=== PATIENT | female | born 1960 | race Caucasian/White ===

== ENCOUNTER 2018-11-26 08:39 | Emergency (ER) | payer OTHER ==
[2018-11-26] MEDS ORDERED: PROCHLORPERAZINE EDISYLATE INJ 10 MG/2 ML VIAL IV ONE (09:28)
[2018-11-26] MEDS ORDERED: KETOROLAC TROMETHAMINE INJ/PF 30 MG/1 ML SDV IV ONE (09:28)
[2018-11-26] MEDS ORDERED: ONDANSETRON HCL INJ/PF 4 MG/2 ML SDV IV ONE (09:29)
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
[2018-11-26 12:12] VITALS: BP 153/88
== END 2018-11-26 12:32 | disposition home or self-care (01) ==
LOC: ER 08:39
DX: G44.209 Tension-type headache, unspecified, not intractable (principal); M54.2 Cervicalgia; F17.200 Nicotine dependence, unspecified, uncomplicated; I10 Essential (primary) hypertension
CPT/HCPCS: 99284; 96374; 96375; J1885; J0780; J2405

== ENCOUNTER 2018-12-01 12:38 | Emergency (ER) | payer OTHER ==
[2018-12-01] MEDS ORDERED: DIPHENHYDRAMINE HCL 50 MG/ML VIAL IV ONE (13:34)
[2018-12-01] MEDS ORDERED: NORMAL SALINE 1000 ML 1,000 ML IV ONE (13:34)
[2018-12-01] MEDS ORDERED: METOCLOPRAMIDE HCL INJ/PF 10 MG/2 ML SDV IV ONE (13:34)
--- NOTE | 2018-12-01 13:37 | ER Document Report ---
ED Medical Screen (RME) - General Chief Complaint: Headache Stated Complaint: HEADACHE Time Seen by Provider: 12/01/18 13:26 Primary Care Provider: RENE VILLAFUERTE MD [Primary Care Provider] - Follow up as needed Mode of Arrival: Ambulatory Information source: Patient Notes: 57-year-old female presents emergency department with complaints of a headache that is been present for the last 5 days. Not abrupt onset. States it's been constant and gradually worsening. She describes it as a pressure/pounding sensation over her entire head. She denies any radiation the pain. No alleviating factors. Pain worse with noise. She denies any vision changes, speech changes, numbness, tingling, weakness, ataxia. She has had some intermittent nausea and myalgias. She denies any fever, neck pain. Patient was seen in the emergency department a few days ago and was diagnosed with a tension headache. She had reproducible paraspinal pain. She was prescribed motrin. No relief with the medication. Patient thinks she has a migraine headache but no history of migraines. I have greeted and performed a rapid initial assessment of this patient. A comprehensive ED assessment and evaluation of the patient, analysis of test results and completion of the medical decision making process will be conducted by additional ED providers. PHYSICAL EXAMINATION: GENERAL: Well-appearing, well-nourished and in no acute distress. HEAD: Atraumatic, normocephalic. EYES: Pupils equal round extraocular movements intact, conjunctiva are normal. ENT: Nares patent NECK: Normal range of motion LUNGS: No respiratory distress Musculoskeletal: Normal range of motion NEUROLOGICAL: Normal speech, normal gait. PSYCH: Normal mood, normal affect. SKIN: Warm, Dry, normal turgor, no rashes or lesions noted. TRAVEL OUTSIDE OF THE [place] IN LAST 30 DAYS: No - Related Data Allergies/Adverse Reactions: No Known Allergies Allergy (Verified 12/01/18 12:38) Past Medical History - Social History Frequency of alcohol use: Occasional Drug Abuse: Prescription drugs - Past Medical History Cardiac Medical History: Reports: Hx Hypertension Denies: Hx Coronary Artery Disease, Hx Heart Attack Pulmonary Medical History: Reports: Hx COPD Denies: Hx Asthma, Hx Bronchitis, Hx Pneumonia Neurological Medical History: Denies: Hx Cerebrovascular Accident, Hx Seizures Renal/ Medical History: Denies: Hx Peritoneal Dialysis Musculoskeltal Medical History: Denies Hx Arthritis Physical Exam - Vital signs Vitals: Temp Pulse Resp BP Pulse Ox 99.2 F 72 20 138/91 H 96 12/01/18 12:54 12/01/18 12:54 12/01/18 12:54 12/01/18 12:54 12/01/18 12:54 Course - Vital Signs Vital signs: Temp Pulse Resp BP Pulse Ox 99.2 F 72 20 138/91 H 96 12/01/18 12:54 12/01/18 12:54 12/01/18 12:54 12/01/18 12:54 12/01/18 12:54 Doctor's Discharge - Discharge Referrals: RENE VILLAFUERTE MD [Primary Care Provider] - Follow up as needed
--- NOTE | 2018-12-01 14:49 | ER Document Report ---
ED General - General Chief Complaint: Headache Stated Complaint: HEADACHE Time Seen by Provider: 12/01/18 13:26 Primary Care Provider: RENE VILLAFUERTE MD [Primary Care Provider] - Follow up as needed Mode of Arrival: Ambulatory TRAVEL OUTSIDE OF THE [place] IN LAST 30 DAYS: No - HPI Notes: Patient presents to the emergency department for evaluation of a headache. It started on Sunday. It was gradual in onset. She has had intermittent blurry vision. She was seen here earlier in the week and diagnosed with a tension headache. She was sent home with Motrin which she states is not been helping. She is also had nausea and vomiting. She reports one episode of emesis yesterday. She denies any difficulty speaking or swallowing. Moving her arms and legs without difficulty. She denies any recent head traumas. She does have a history of high blood pressure has been taking her medications appropriately. - Related Data Allergies/Adverse Reactions: No Known Allergies Allergy (Verified 12/01/18 12:38) Past Medical History - General Information source: Patient - Social History Smoking Status: Current Every Day Smoker Frequency of alcohol use: Occasional Drug Abuse: Prescription drugs Family History: Reviewed & Not Pertinent, Other - Mother with aneurysm Patient has suicidal ideation: No Patient has homicidal ideation: No - Past Medical History Cardiac Medical History: Reports: Hx Hypertension Denies: Hx Coronary Artery Disease, Hx Heart Attack Pulmonary Medical History: Reports: Hx COPD Denies: Hx Asthma, Hx Bronchitis, Hx Pneumonia Neurological Medical History: Denies: Hx Cerebrovascular Accident, Hx Seizures Renal/ Medical History: Denies: Hx Peritoneal Dialysis Musculoskeletal Medical History: Denies Hx Arthritis Review of Systems - Review of Systems Constitutional: No symptoms reported EENT: See HPI, Blurred vision Cardiovascular: No symptoms reported Respiratory: Cough - Chronic smoker's cough Gastrointestinal: Nausea, Vomiting Musculoskeletal: No symptoms reported Skin: No symptoms reported Neurological/Psychological: No symptoms reported Physical Exam - Vital signs Vitals: Temp Pulse Resp BP Pulse Ox 99.2 F 72 20 138/91 H 96 12/01/18 12:54 12/01/18 12:54 12/01/18 12:54 12/01/18 12:54 12/01/18 12:54 Interpretation: Other - Mildly hypertensive but otherwise unremarkable - General General appearance: Appears well, Other - Drowsy, presumably from Benadryl, no acute distress In distress: None - HEENT Head: Normocephalic Pupils: PERRL Pharynx: Normal - Respiratory Respiratory status: No respiratory distress Breath sounds: Decreased air movement - Cardiovascular Rhythm: Regular - Abdominal Inspection: Normal Bowel sounds: Normal Tenderness: Nontender - Back Back: Normal - Extremities General upper extremity: Normal inspection General lower extremity: Normal inspection - Neurological Cognition: Normal Orientation: AAOx4 Werner Coma Scale Eye Opening: To Voice [place] Coma Scale Verbal: Oriented Werner Coma Scale Motor: Obeys Commands Werner Coma Scale Total: 14 Speech: Normal Cranial nerves: Normal Motor strength normal: LUE, RUE, LLE, RLE Sensory: Normal Knee - Reflex grade: 2 = Normal Ankle - Reflex grade: 2 = Normal - Skin Skin Temperature: Warm Skin Moisture: Dry Course - Re-evaluation Re-evalutation: 12/01/18 14:48 Patient presents to the emergency department for evaluation. At the time of my exam she was significantly drowsy. I did verify this was likely secondary to the Benadryl, she was not like this a presentation. Secondary to the fact that this is an abnormal headache for the patient I did order a CT scan of her head for further evaluation. She was resting comfortably. 12/01/18 15:18 Notified by radiology of positive CT findings concerning for aneurysmal bleed. Notified that it was above the [place] with approximately 2 cm hematoma noted. 12/01/18 15:24 Spoke to the transfer center at [facility]. Awaiting call from neurointerventionalist. 12/01/18 15:36 I spoke with , at [facility] in [place], he will accept the patient in transfer. They are currently doing no other check for the availability of helicopter for transfer. 12/01/18 16:37 Reevaluated. Patient remained stable but I was notified that she is febrile. OR Tylenol ordered. Helicopter has arrived for transfer. - Vital Signs Vital signs: Temp Pulse Resp BP Pulse Ox 101.7 F H 72 25 H 185/81 H 93 12/01/18 16:22 12/01/18 12:54 12/01/18 16:23 12/01/18 16:23 12/01/18 16:23 - Laboratory Result Diagrams: 12/01/18 15:41 12/01/18 15:41 Laboratory results interpreted by me: 02/10/19 02/10/19 15:41 15:41 WBC 11.0 H RBC 5.37 H Hgb 16.8 H Hct 47.7 H Plt Count 109 L Potassium 3.4 L Glucose 117 H Direct Bilirubin 0.6 H - Diagnostic Test Radiology reviewed: Reports reviewed - Subarachnoid hemorrhage from likely aneurysm noted Discharge - Discharge Clinical Impression: Subarachnoid hemorrhage Condition: Fair Disposition: [facility] Admitting Provider: Esthela Referrals: RENE VILLAFUERTE MD [Primary Care Provider] - Follow up as needed
--- NOTE | 2018-12-01 15:24 | RADIOLOGY REPORT (SQ) ---
EXAM DESCRIPTION: CT HEAD WITHOUT COMPLETED DATE/TIME: 12/01/2018 3:02 pm REASON FOR STUDY: headache COMPARISON: None. TECHNIQUE: Axial images acquired through the brain without intravenous contrast. Images reviewed wi th bone, brain and subdural windows. Images stored on PACS. All CT scanners at this facility use dose modulation, iterative reconstruction, and/or weight based d osing when appropriate to reduce radiation dose to as low as reasonably achievable (ALARA). [facility]: Dose Right [facility]: CareDose [facility]: Dose Right [facility]: Teradose 4D [facility]: Smart Crayon Data RADIATION DOSE: CT Rad equipment meets quality standard of care and radiation dose reduction techniq ues were employed. CTDIvol: 55.2 mGy. DLP: 1167 mGy-cm. mGy. LIMITATIONS: None. FINDINGS: VENTRICLES: Normal size and contour. 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 There is subarachnoid blood present bilaterally over the convexities, in the insular region, and in the inter peduncular cistern as well as the prepontine fossa. . No midline shift. No evidence for acute infa rction. Normal cannon/white matter differentiation. No areas of low density in the white matter. 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 There is subarachnoid blood present bilaterally over the convexities, in the insular region, and in the int erpeduncular cistern as well as the prepontine fossa.. No evidence for acute infarction. EXTRAAXIAL SPACES: No masses. ORBITS AND GLOBE: No intra- or extraconal masses. Normal contour of globe without masses. CALVARIUM: No fracture. PARANASAL SINUSES: No fluid or mucosal thickening. SOFT TISSUES: No mass or hematoma. OTHER: No other significant finding. 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 There is subarachnoid blood present bilaterally over the convexities, in the insular region, and in the in terpeduncular cistern as well as the prepontine fossa. EVIDENCE OF ACUTE STROKE: NO. COMMENT: These results were called to Dr. Serna in the emergency room at [address] Sherwin sanchez. Results were confirmed and read back. Quality ID # [id number]: Final reports with documentation of one or more dose reduction techniques (e.g., Au tomated exposure control, adjustment of the mA and/or kV according to patient size, use of iterative reconstruction technique) TECHNICAL DOCUMENTATION: JOB ID: [id number] [place]-72 2010 [employer]- All Rights Reserved Reading location - IP/workstation name: [email or web address]
[2018-12-01] MEDS ORDERED: ONDANSETRON HCL INJ/PF 4 MG/2 ML SDV IV ONE (15:50)
[2018-12-01] MEDS ORDERED: FENTANYL CITRATE INJ/PF 100 MCG/2 ML AMPUL IV ONE (15:50)
[2018-12-01 15:54] LABS: ABSOLUTE BASOPHILS # (AUTO) 0.1 10^3/uL (0.0-0.2); ABSOLUTE LYMPHOCYTES (AUTO) 2.5 10^3/uL (0.5-4.7); ABSOLUTE MONOCYTES (AUTO) 1.1 10^3/uL (0.1-1.4); ABSOLUTE NEUT (AUTO) 7.4 10^3/uL (1.7-8.2); BASOPHILS % (AUTO) 0.5 % (0-2); HEMATOCRIT 47.7 % (36.0-47.0); HEMOGLOBIN 16.8 g/dL (12.0-15.5); LYMPHOCYTES % (AUTO) 22.9 % (13-45); MEAN CORPUSCULAR HEMOGLOBIN 31.2 pg (27.0-33.4); MEAN CORPUSCULAR HGB CONC 35.1 g/dL (32.0-36.0); MEAN CORPUSCULAR VOLUME 89 fl (80-97); MONOCYTES % (AUTO) 9.9 % (3-13); PLATELET COUNT 109 10^3/uL (150-450); RED BLOOD COUNT 5.37 10^6/uL (3.72-5.28); RED CELL DISTRIBUTION WIDTH 12.5 % (11.5-14.0); SEGMENTED NEUTROPHILS % (AUTO) 66.7 % (42-78); TOTAL CELLS COUNTED % (AUTO) 100 %
[2018-12-01 16:05] LABS: INTERNATIONAL RATION (INR) 0.98; PROTHROMBIN TIME 13.5 SEC (11.4-15.4)
[2018-12-01 16:06] LABS: PARTIAL THROMBOPLASTIN TIME 35.3 SEC (23.5-35.8)
[2018-12-01 16:11] LABS: ALANINE AMINOTRANSFERASE 35 U/L (9-52); ALBUMIN 4.5 g/dL (3.5-5.0); ALKALINE PHOSPHATASE 107 U/L (38-126); ANION GAP 14 (5-19); ASPARTATE AMINO TRANSFERASE 35 U/L (14-36); BILIRUBIN,DIRECT 0.6 mg/dL (0.0-0.4); BILIRUBIN,TOTAL 1.3 mg/dL (0.2-1.3); BLOOD UREA NITROGEN 16 mg/dL (7-20); CALCIUM 9.8 mg/dL (8.4-10.2); CARBON DIOXIDE 30 mmol/L (22-30); CHLORIDE 98 mmol/L (98-107); GLUCOSE 117 mg/dL (75-110); POTASSIUM 3.4 mmol/L (3.6-5.0); SODIUM 141.5 mmol/L (137-145)
[2018-12-01] MEDS ORDERED: ACETAMINOPHEN 650 MG SUPP.RECT PR ONE (16:32)
[2018-12-01] MEDS ORDERED: ACETAMINOPHEN 325 MG SUPP.RECT PR ONE (16:34)
[2018-12-01 16:42] VITALS: BP 185/81
== END 2018-12-01 16:51 | disposition short-term general hospital (02) ==
LOC: ER 12:38
DX: I60.8 Other nontraumatic subarachnoid hemorrhage (principal); H53.8 Other visual disturbances; R11.10 Vomiting, unspecified; R11.2 Nausea with vomiting, unspecified; I10 Essential (primary) hypertension; J44.9 Chronic obstructive pulmonary disease, unspecified; F17.200 Nicotine dependence, unspecified, uncomplicated; R05 Cough; R40.0 Somnolence; Z79.899 Other long term (current) drug therapy
CPT/HCPCS: 99285; 96361; 96374; 96375; 36415; 85025; 85610; 85730; 80053; 70450; J1200; J3010; J2765; J2405; J7030